=== PATIENT | female | born 1945 | race Caucasian/White ===

== ENCOUNTER 2020-05-28 15:37 | Inpatient (IN) | payer MEDICARE, SELFPAY ==
[2020-05-28] VITALS (15 sets, daily range): BP systolic 106–154; BP diastolic 66–82; PULSE 80–100; RESP 12–48; TEMP 38.5–38.8; O2SAT 68–86; BMI 24.7
[2020-05-28 15:36] LABS: Absolute Lymphocyte Count 0.82 X10^3/uL (0.83-4.51); Absolute Neutrophil Count 17.8 X10^3/uL (2.0-7.7); Basophil# 0.06 X10^3/uL; Basophil% 0.3 % (0-1); Eosinophil# 0.03 X10^3/uL; Eosinophils% 0.2 % (0-5); Hematocrit 42.1 % (37-47); Hemoglobin 14.4 g/dL (12.0-15.0); Lymphocyte # 0.82 X10^3/ul (4.0); Lymphocyte % 4.2 % (19-41); Mean Corp Hgb Conc 34.2 g/dL (32-36); Mean Corpuscular Hgb 30.1 pg (27.0-32.0); Mean Corpuscular Volume 87.9 fL (81-99); Mean Platelet Vol. 10.6 fl (6.2-12.0); Monocyte# 0.42 X10^3/uL; Monocyte% 2.2 % (0-10); NRBC Flagged by Analyzer 0 % (0-5); Neutrophil # 17.78 X10^3/uL (2.7-7.7); Neutrophil % 91.1 % (47-70); Platelet Count 235 K/mm3 (150-450); RBC Distribution Width CV 13.5 % (11.6-14.6); RBC Distribution Width SD 43.6 fl (35.1-43.9); Red Blood Count 4.79 M/mm3 (4.2-5.4); White Blood Count 19.5 K/mm3 (4.4-11.0)
--- NOTE | 2020-05-28 15:37 | RAD_ITS ---
STUDY: X-RAY CHEST REASON FOR EXAM: Female, 74 years old. DYSPNEA, COVID TECHNIQUE: AP COMPARISON: None. FINDINGS: EKG leads project over the chest. Interstitial, groundglass opacity and consolidative densities identified in the left more than right lung, peripheral dominant. No sizable effusion. Normal size heart. Normal mediastinum and isaura. Normal visualized pulmonary arteries. There is atherosclerotic calcification of the aortic arch with tortuosity. No acute bony process There is no demonstrated abnormality of the visualized soft tissue structures of the upper abdomen. RAD/Chest 1 View (Portable) IMPRESSION: 1. Multilobar pulmonary infiltrates with features suggesting COVID pneumonia. Electronically Signed: Rancho Capone MD ([facility]) at 16:14 EST , Service support ,
--- NOTE | 2020-05-28 15:43 | NURSING ---
received from [facility] pulse ox 50% on non-rebreather bi-pap applied 100% epap 11, core temp wells inserted obtained clear bryson urine, a-flutter on monitor
[2020-05-28 16:06] LABS: Base Excess -6 mmol/L (-2 to +2); Bicarbonate 18.6 mmol/L (22-26); Blood Gas Specimen Type ART; FI02 100; PEEP 14; PO2 43 mmHG (75-100); RR 12; SITE R Radial; SO2 82 % (95-99); Total Carbon Dioxide 20 mmol/L; Vt 400; pCO2 27.4 mmHg (35-45); pH 7.44 (7.35-7.45)
[2020-05-28 16:18] LABS: Absolute Lymphocyte Count 0.59 X10^3/uL (0.83-4.51); Absolute Neutrophil Count 23.1 X10^3/uL (2.0-7.7); Basophil# 0.07 X10^3/uL; Basophil% 0.3 % (0-1); Eosinophil# 0.03 X10^3/uL; Eosinophils% 0.1 % (0-5); Hematocrit 41.3 % (37-47); Lymphocyte # 0.59 X10^3/ul (4.0); Lymphocyte % 2.4 % (19-41); Mean Corp Hgb Conc 33.9 g/dL (32-36); Mean Corpuscular Hgb 30.1 pg (27.0-32.0); Mean Corpuscular Volume 88.8 fL (81-99); Mean Platelet Vol. 9.9 fl (6.2-12.0); Monocyte# 0.57 X10^3/uL; Monocyte% 2.3 % (0-10); NRBC Flagged by Analyzer 0 % (0-5); Neutrophil # 23.06 X10^3/uL (2.7-7.7); POSITIVE DIFFERENTIAL YES; Platelet Count 220 K/mm3 (150-450); RBC Distribution Width CV 13.5 % (11.6-14.6); Red Blood Count 4.65 M/mm3 (4.2-5.4); White Blood Count 24.8 K/mm3 (4.4-11.0)
[2020-05-28 16:23] LABS: Differential Indicated SCAN CRITERIA MET
[2020-05-28 16:37] LABS: ALB/GLOB Ratio 0.6 RATIO (0.9-2.4); AST(SGOT) 16 U/L (15-37); Alanine Aminotransfer ALT/SGPT 27 U/L (13-56); Albumin, Serum 2.5 g/dL (3.2-5.0); Alkaline Phosphatase 106 U/L (45-117); Anion Gap 10 (5-15); BUN 23 mg/dL (7-18); BUN/Creat Ratio 21.5 RATIO (10-20); Calcium,Total 8.4 mg/dL (8.5-10.1); Chloride 108 mmol/L (98-107); Creatinine, Serum 1.07 mg/dL (0.55-1.02); EST Glomerular Filtration Rate 53 mL/min (>60); Est Glom Filt Rate - Afr Amer 64 mL/min (>60); Estimated Creatinine Clearance 39.23 ml/min; Globulin 4.2 g/dL (2.2-4.2); Glucose 137 mg/dL (74-106); Potassium 3.5 mmol/L (3.5-5.1); Protein, Total 6.7 g/dL (6.4-8.2); Sodium Level 138 mmol/L (136-145)
[2020-05-28 16:50] LABS: Magnesium 2.4 mg/dL (1.6-2.6); Phosphorus 3.6 mg/dL (2.5-4.9)
[2020-05-28] MEDS: Furosemide 40 MG/4 ML Vial IV (17:40)
[2020-05-28] MEDS: 0.9% Saline Lock 10 ML Syringe IV (17:42)
--- NOTE | 2020-05-28 18:24 | HP.PCM_ITS ---
Problem List (1) Pneumonia due to COVID-19 virus Status: Acute (2) Acute hypoxemic respiratory failure Status: Acute (3) Atrial flutter with rapid ventricular response Status: Acute History of Present Illness Date of Admission: 05/28/20 Chief Complaint: Shortness of breath The patient is a 74 year old F transferred from [facility] where she had been on admission for the last 12 days for COVID-19 pneumonia and respiratory failure. Patient had been on high flow oxygen and had completed 10 days therapy with remdesivir and dexamethasone but has yet to improve. As of today patient, though being on 100% oxygen at 80 L was only saturating in the 60s to 70s. Here patient has been placed on noninvasive positive pressure ventilation with BiPAP/AVAPS at 100% FiO2 and is only saturating at 74%. Multiple discussions had with the patient at the referring hospital as well as during my encounter regarding goals of care and resuscitation preferences. Patient continues to insist that she would not want to be intubated or to be on mechanical ventilation. States that if things get really bad she may consider it. Hospital stay there was complicated by development of what was reported to be atrial fibrillation with rapid ventricular response requiring initiation of Cardizem drip and full anticoagulation with Eliquis. On my own review of EKG strips it appears patient was actually in atrial flutter with rapid ventricular response. [] Past Medical History Allergies No Known Allergies Allergy (Verified 05/28/20 17:28) Psychiatric History: No pertinent psych hx Smoking Status: Former smoker Tobacco Use: Cigarettes Review of Systems Constitutional: Reports: Anorexia, Malaise, Fatigue Eyes: Denies: Blurred vision HEENT: Denies: Difficulty Hearing Cardiovascular: Denies: Chest Pain, Claudication Respiratory: Reports: Cough, Shortness of Breath, Shortness of breath at rest, S hortness of breath upon exertion Gastrointestinal: Denies: Abdominal Pain, Vomiting Psychiatric: Denies: Anxiety Comment: All other systems reviewed and essentially negative. VTE Information - Inpt Only VTE Present on Admission: No VTE Pharm Prophylaxis ordered?: Yes - Physical Exam Vitals/I&O's: Vital Signs Temp Pulse Resp BP Pulse Ox 101.8 F H 91 37 H 138/72 H 78 05/28/20 17:01 05/28/20 17:42 05/28/20 17:42 05/28/20 17:01 05/28/20 17:42 Oxygen Delivery Method Bi-pap Weight: 65.3 kg Body Mass Index (BMI) 24.7 General: Alert, Oriented x3, Cooperative, - - Severely dyspneic, tachypneic, in respiratory distress, relatively calm though HEENT: Atraumatic Oral: Dry Mucosa Neck: Supple, No JVD Lungs: - - Harsh breath sounds bilaterally Cardiovascular: No Ectopic Activity, Tachycardic Abdomen: Soft Extremities: No clubbing, No cyanosis, No edema Skin: - - Some mottling noted in the lower extremities Musculoskeletal: No Tenderness to Palpation of Joints or Extremities, No Muscle Wasting Neurological: Cranial nerves II-XII grossly intact, Motor Exam 5/5 strength throughout Psych/Mental Status: Normal Affect, Appropriate Laboratory Results 05/28/20 15:15: WBC 19.5 H, RBC 4.79, Hgb 14.4, Hct 42.1, MCV 87.9, MCH 30.1, MCHC 34.2, RDW Std Deviation 43.6, RDW Coeff of Naty 13.5, Plt Count 235, MPV 10.6, Immature Gran % (Auto) 2.000 H, Neut % (Auto) 91.1 H, Lymph % (Auto) 4.2 L , [place] % (Auto) 2.2, Eos % (Auto) 0.2, Baso % (Auto) 0.3, Absolute Neuts (auto) 17.8 H, Absolute Lymphs (auto) 0.82 L, Nucleated RBC % 0 05/28/20 15:15: PT Cancelled, INR Cancelled 05/28/20 15:15: Sodium Cancelled, Potassium Cancelled, Chloride Cancelled, Carbon Dioxide Cancelled, Anion Gap Cancelled, BUN Cancelled, Creatinine Cancelled, Estim Creat Clear Calc Cancelled, Est GFR (MDRD) Af Amer Cancelled, Est GFR (MDRD) Non-Af Cancelled, BUN/Creatinine Ratio Cancelled, Glucose Cancelled, Calcium Cancelled, Phosphorus Cancelled, Magnesium Cancelled 05/28/20 15:15: Lactic Acid Cancelled 05/28/20 15:58: Specimen Type ART, Sample Site R Radial, pH 7.44, Bicarbonate Actual 18.6 L, Total CO2 20, Base Excess -6 L, O2 Saturation 82 L, O2 % 100, ABG pCO2 27.4 L, ABG pO2 43 L, Respiration Rate 12, Tidal Volume 400, POC PEEP 14 05/28/20 16:00: Sodium 138, Potassium 3.5, Chloride 108 H, Carbon Dioxide 20.0 L , Anion Gap 10, BUN 23 H, Creatinine 1.07 H, Estim Creat Clear Calc 39.23, Est GFR (MDRD) Af Amer 64, Est GFR (MDRD) Non-Af 53 L, BUN/Creatinine Ratio 21.5 H, Glucose 137 H, Calcium 8.4 L, Total Bilirubin 0.80, AST 16, ALT 27, Alkaline Phosphatase 106, Total Protein 6.7, Albumin 2.5 L, Globulin 4.2, Albumin/Globulin Ratio 0.6 L 05/28/20 16:00: WBC 24.8 H, RBC 4.65, Hgb 14.0, Hct 41.3, MCV 88.8, MCH 30.1, MCHC 33.9, RDW Std Deviation 44.0 H, RDW Coeff of Naty 13.5, Plt Count 220, MPV 9.9, Immature Gran % (Auto) 1.900 H, Neut % (Auto) 93.0 H, Lymph % (Auto) 2.4 L, [place] % (Auto) 2.3, Eos % (Auto) 0.1, Baso % (Auto) 0.3, Absolute Neuts (auto) 23.1 H, Absolute Lymphs (auto) 0.59 L, Nucleated RBC % 0 05/28/20 16:00: Phosphorus 3.6, Magnesium 2.4 05/28/20 16:04: Specimen Type Cancelled, Sample Site Cancelled, pH Cancelled, Bicarbonate Actual Cancelled, Total CO2 Cancelled, Base Excess Cancelled, O2 Saturation Cancelled, O2 % Cancelled, ABG pCO2 Cancelled, ABG pO2 Cancelled, Roni Test Cancelled, Respiration Rate Cancelled, O2 Delivery Device Cancelled, Liter Flow Cancelled, Minute Volume Cancelled, Vent Mode Cancelled, Inspiratory Time Cancelled, Expiratory Time Cancelled, Tidal Volume Cancelled, POC PEEP Cancelled, POC Pressure Suppt Cancelled, Pressure Control Cancelled, Pressure High Cancelled, Pressure Low Cancelled, Time High Cancelled, Time Low Cancelled, EPAP Cancelled, IPAP Cancelled, Blood Gas Comments Cancelled, Blood Gas Notified Whom Cancelled, Blood Gas Notified Time Cancelled Current Medications Acetaminophen (Acetaminophen 325 Mg Tablet) 650 mg PO Q6H PRN PRN PRN Reason: Pain Score 1-10/Temp > 100.7 F Enoxaparin Sodium (Enoxaparin 60 Mg/0.6 Ml Syringe) 60 mg SC Q12 [facility] Furosemide (Furosemide 40 Mg/4 Ml Vial) 40 mg IV BID@1000,1800 [facility] Last Admin: 05/28/20 17:40 Dose: 40 mg Documented by: Diltiazem HCl 125 mg/ Dextrose 125 mls @ 15 mls/hr IV .Q8H20M [facility]; Protocol Last Admin: 05/28/20 16:13 Dose: 15 mg/hr, 15 mls/hr Documented by: Morphine Sulfate (Morphine 2 Mg/Ml Syringe) 2 mg IV Q3H PRN PRN PRN Reason: Pain Score 6-10 Sodium Chloride (0.9% Saline Lock 10 Ml Syringe) 10 - 40 ml IV UD PRN PRN Reason: SALINE FLUSH Last Admin: 05/28/20 17:42 Dose: 10 ml Documented by: Assessment/Plan All Active Problems Pneumonia due to COVID-19 virus (Acute) Acute hypoxemic respiratory failure (Acute) Atrial flutter with rapid ventricular response (Acute) 1. COVID-19 pneumonia with acute hypoxic respiratory failure. Patient essentially maxed out on noninvasive positive pressure ventilation settings. Remains reluctant to consider invasive ventilation at this time. May need to continue to have ongoing discussions with this patient about this. Discussed with pulmonology/critical care. Recommending starting patient on IV Lasix and full anticoagulation for presumed possible pulmonary embolism. Continue IV steroids with dexamethasone. 2. Atrial flutter with rapid ventricular response. Continue Cardizem drip at current rate. Transition to oral Cardizem when able to safely take by mouth. Inpatient E&M: 23042 Init Hosp L3
[2020-05-28] MEDS: Enoxaparin 60 MG/0.6 ML Syringe SC (20:29)
[2020-05-28 22:10] LABS: International Normalized Ratio 2.1; Prothrombin Time (Protime)PT. 22.7 SECONDS (11.7-14.9)
[2020-05-28 22:41] LABS: Lactic Acid 2.2 mmol/L (0.4-1.9)
[2020-05-29] VITALS (37 sets, daily range): BP systolic 111–161; BP diastolic 56–142; PULSE 81–104; RESP 12–37; TEMP 37.4–38.3; O2SAT 82–93
[2020-05-29 01:59] LABS: Reflex Lactate? Y
[2020-05-29 04:06] LABS: Absolute Lymphocyte Count 0.87 X10^3/uL (0.83-4.51); Absolute Neutrophil Count 14.7 X10^3/uL (2.0-7.7); Basophil# 0.04 X10^3/uL; Basophil% 0.2 % (0-1); Eosinophil# 0.03 X10^3/uL; Eosinophils% 0.2 % (0-5); Hematocrit 38.9 % (37-47); Hemoglobin 13.3 g/dL (12.0-15.0); Lymphocyte # 0.87 X10^3/ul (4.0); Lymphocyte % 5.3 % (19-41); Mean Corp Hgb Conc 34.2 g/dL (32-36); Mean Corpuscular Hgb 30.2 pg (27.0-32.0); Mean Corpuscular Volume 88.2 fL (81-99); Mean Platelet Vol. 10.4 fl (6.2-12.0); Monocyte# 0.43 X10^3/uL; Monocyte% 2.6 % (0-10); NRBC Flagged by Analyzer 0 % (0-5); Neutrophil # 14.65 X10^3/uL (2.7-7.7); Neutrophil % 89.9 % (47-70); Platelet Count 206 K/mm3 (150-450); RBC Distribution Width CV 13.5 % (11.6-14.6); Red Blood Count 4.41 M/mm3 (4.2-5.4); White Blood Count 16.3 K/mm3 (4.4-11.0)
[2020-05-29 04:27] LABS: Anion Gap 10 (5-15); BUN 26 mg/dL (7-18); BUN/Creat Ratio 21.7 RATIO (10-20); Calcium,Total 8.4 mg/dL (8.5-10.1); Chloride 110 mmol/L (98-107); EST Glomerular Filtration Rate 47 mL/min (>60); Est Glom Filt Rate - Afr Amer 56 mL/min (>60); Estimated Creatinine Clearance 34.98 ml/min; Glucose 153 mg/dL (74-106); Potassium 3.5 mmol/L (3.5-5.1); Sodium Level 142 mmol/L (136-145)
[2020-05-29 04:37] LABS: Procalcitonin 0.77 ng/mL (0.00-0.09)
--- NOTE | 2020-05-29 06:37 | CON.PCM_ITS ---
Reason for Consult Date of Consultation: 05/29/20 Reason for Consultation: Acute hypoxemic respiratory failure History of Present Illness: The patient is a 74-year-old female, with a history as outlined below, who presented to the hospital on May 28 as a transfer of care from [facility] with respiratory failure secondary to COVID-19 pneumonia. The patient was initially admitted to the outside hospital on the and has received treatment with convalescent plasma, remdesivir and Decadron. The patient was also placed on systemic anticoagulation initially with Lovenox and later with Eliquis. Although the aforementioned interventions were undertaken, the patient failed to improve from a respiratory perspective prior to her transfer was maintaining saturations in the 70s on high flow oxygen. The patient was subsequently transferred to our medical intensive care unit, where she was placed on AVAPS therapy. The patient is currently being maintained on noninvasive positive pressure ventilatory support with a tidal volume target of 450 mL and an FiO2 of 100%. The patient was noted to be in atrial flutter/fibrillation upon arrival and was placed on a Cardizem infusion. She subsequently converted back to normal sinus rhythm last night at 0200 hrs. She is currently being treated with IV Lasix 40 mg twice daily. Despite all of the above, the patient remains in respiratory distress on noninvasive positive pressure ventilatory support. In speaking with the patient at length this morning, she did become visibly distressed with tachypnea and conversational dyspnea. She appears to be wavering with regard to her CODE STATUS and her desire to proceed with being intubated. Past Medical History Allergies No Known Allergies Allergy (Verified 05/28/20 17:28) Home Medications: Ambulatory Orders Medication Instructions Recorded Levothyroxine Sodium [Synthroid] 50 mcg PO DAILY 05/29/20 Psychiatric History: No pertinent psych hx Smoking Status: Former smoker Tobacco Use: Cigarettes Review of Systems Constitutional: Reports: Weakness, Fatigue. Denies: Chills, Fever Eyes: Denies: Blurred vision, Double vision HEENT: Denies: Head Aches, Sinus Congestion, Sinus Drainage Cardiovascular: Denies: Chest Pain, Palpitations Respiratory: Reports: Shortness of Breath Gastrointestinal: Denies: Abdominal Pain, Nausea, Vomiting Genitourinary: Denies: Dysuria Musculoskeletal: Denies: Joint Pain, Joint Tenderness Skin: Denies: Rash, Wounds Neurological: Denies: Numbness, Tingling, Focal weakness Psychiatric: Denies: Anxiety, Depression, Homicidal Ideations, Suicidal Ideations Hematologic/ Lymphatic: Denies: Easy Bruising, Easy Bleeding Patient Problems: Active and Suspected Problems Pneumonia due to COVID-19 virus (Acute) Acute hypoxemic respiratory failure (Acute) Atrial flutter with rapid ventricular response (Acute) Objective: The patient's most recent lab work, culture data and imaging studies have all been personally reviewed. - Physical Exam Vitals/I&O's: Vital Signs Temp Pulse Resp BP Pulse Ox 100.9 F H 85 28 H 130/69 H 89 05/29/20 00:00 05/29/20 06:30 05/29/20 06:15 05/29/20 06:00 05/29/20 06:15 Oxygen Delivery Method Bi-pap Weight: 148 lb 12.992 oz Body Mass Index (BMI) 24.7 Intake and Output for Last 24 Hours 05/27/20 05/28/20 05/29/20 23:59 23:59 23:59 Intake Total 101.75 / 116.75 110.00 / 110.00 Output Total 450 / 450 90 / 90 Balance -348.25 / -333.25 20.0 / 20.00 General: Alert, Cooperative, - - Appears distressed with AVAPS in place. HEENT: Atraumatic, Normocephalic Oral: Dry Mucosa Neck: Supple, No Nodes, Trachea Midline Lungs: Diminished, Short of Breath, Tachypneic, - - + Conversational dyspnea Cardiovascular: Regular rate, Regular Rhythm Abdomen: Bowel Sounds Present, Soft, Non Tender Extremities: No clubbing, No cyanosis, No edema Skin: No breakdown Musculoskeletal: No Tenderness to Palpation of Joints or Extremities Lymphatic: No Cervical, Supraclavicular, or Inguinal Adenopathy Neurological: Cranial nerves II-XII grossly intact, Neuro grossly intact Psych/Mental Status: Normal Affect Labs (Last 48 Hours) 05/28/20 05/28/20 05/28/20 15:15 15:15 15:15 WBC 19.5 H RBC 4.79 Hgb 14.4 Hct 42.1 MCV 87.9 MCH 30.1 MCHC 34.2 RDW Std Deviation 43.6 RDW Coeff of Naty 13.5 Plt Count 235 MPV 10.6 Immature Gran % (Auto) 2.000 H Neut % (Auto) 91.1 H Lymph % (Auto) 4.2 L [place] % (Auto) 2.2 Eos % (Auto) 0.2 Baso % (Auto) 0.3 Absolute Neuts (auto) 17.8 H Absolute Lymphs (auto) 0.82 L Nucleated RBC % 0 PT Cancelled INR Cancelled Specimen Type Sample Site pH Bicarbonate Actual Total CO2 Base Excess O2 Saturation O2 % ABG pCO2 ABG pO2 Roni Test Respiration Rate O2 Delivery Device Liter Flow Minute Volume Vent Mode Inspiratory Time Expiratory Time Tidal Volume POC PEEP POC Pressure Suppt Pressure Control Pressure High Pressure Low Time High Time Low EPAP IPAP Blood Gas Comments Blood Gas Notified Whom Blood Gas Notified Time Sodium Cancelled Potassium Cancelled Chloride Cancelled Carbon Dioxide Cancelled Anion Gap Cancelled BUN Cancelled Creatinine Cancelled Estim Creat Clear Calc Cancelled Est GFR (MDRD) Af Amer Cancelled Est GFR (MDRD) Non-Af Cancelled BUN/Creatinine Ratio Cancelled Glucose Cancelled Lactic Acid Calcium Cancelled Phosphorus Cancelled Magnesium Cancelled Total Bilirubin AST ALT Alkaline Phosphatase Total Protein Albumin Globulin Albumin/Globulin Ratio Procalcitonin 05/28/20 05/28/20 05/28/20 15:15 15:58 16:00 WBC RBC Hgb Hct MCV MCH MCHC RDW Std Deviation RDW Coeff of Naty Plt Count MPV Immature Gran % (Auto) Neut % (Auto) Lymph % (Auto) [place] % (Auto) Eos % (Auto) Baso % (Auto) Absolute Neuts (auto) Absolute Lymphs (auto) Nucleated RBC % PT INR Specimen Type ART Sample Site R Radial pH 7.44 Bicarbonate Actual 18.6 L Total CO2 20 Base Excess -6 L O2 Saturation 82 L O2 % 100 ABG pCO2 27.4 L ABG pO2 43 L Roni Test Respiration Rate 12 O2 Delivery Device Liter Flow Minute Volume Vent Mode Inspiratory Time Expiratory Time Tidal Volume 400 POC PEEP 14 POC Pressure Suppt Pressure Control Pressure High Pressure Low Time High Time Low EPAP IPAP Blood Gas Comments Blood Gas Notified Whom Blood Gas Notified Time Sodium 138 Potassium 3.5 Chloride 108 H Carbon Dioxide 20.0 L Anion Gap 10 BUN 23 H Creatinine 1.07 H Estim Creat Clear Calc 39.23 Est GFR (MDRD) Af Amer 64 Est GFR (MDRD) Non-Af 53 L BUN/Creatinine Ratio 21.5 H Glucose 137 H Lactic Acid Cancelled Calcium 8.4 L Phosphorus Magnesium Total Bilirubin 0.80 AST 16 ALT 27 Alkaline Phosphatase 106 Total Protein 6.7 Albumin 2.5 L Globulin 4.2 Albumin/Globulin Ratio 0.6 L Procalcitonin 05/28/20 05/28/20 05/28/20 16:00 16:00 16:04 WBC 24.8 H RBC 4.65 Hgb 14.0 Hct 41.3 MCV 88.8 MCH 30.1 MCHC 33.9 RDW Std Deviation 44.0 H RDW Coeff of Naty 13.5 Plt Count 220 MPV 9.9 Immature Gran % (Auto) 1.900 H Neut % (Auto) 93.0 H Lymph % (Auto) 2.4 L [place] % (Auto) 2.3 Eos % (Auto) 0.1 Baso % (Auto) 0.3 Absolute Neuts (auto) 23.1 H Absolute Lymphs (auto) 0.59 L Nucleated RBC % 0 PT INR Specimen Type Cancelled Sample Site Cancelled pH Cancelled Bicarbonate Actual Cancelled Total CO2 Cancelled Base Excess Cancelled O2 Saturation Cancelled O2 % Cancelled ABG pCO2 Cancelled ABG pO2 Cancelled Roni Test Cancelled Respiration Rate Cancelled O2 Delivery Device Cancelled Liter Flow Cancelled Minute Volume Cancelled Vent Mode Cancelled Inspiratory Time Cancelled Expiratory Time Cancelled Tidal Volume Cancelled POC PEEP Cancelled POC Pressure Suppt Cancelled Pressure Control Cancelled Pressure High Cancelled Pressure Low Cancelled Time High Cancelled Time Low Cancelled EPAP Cancelled IPAP Cancelled Blood Gas Comments Cancelled Blood Gas Notified Whom Cancelled Blood Gas Notified Time Cancelled Sodium Potassium Chloride Carbon Dioxide Anion Gap BUN Creatinine Estim Creat Clear Calc Est GFR (MDRD) Af Amer Est GFR (MDRD) Non-Af BUN/Creatinine Ratio Glucose Lactic Acid Calcium Phosphorus 3.6 Magnesium 2.4 Total Bilirubin AST ALT Alkaline Phosphatase Total Protein Albumin Globulin Albumin/Globulin Ratio Procalcitonin 05/28/20 05/28/20 05/28/20 20:05 20:05 21:52 WBC RBC Hgb Hct MCV MCH MCHC RDW Std Deviation RDW Coeff of Naty Plt Count MPV Immature Gran % (Auto) Neut % (Auto) Lymph % (Auto) [place] % (Auto) Eos % (Auto) Baso % (Auto) Absolute Neuts (auto) Absolute Lymphs (auto) Nucleated RBC % PT Cancelled 22.7 H INR Cancelled 2.1 Specimen Type Sample Site pH Bicarbonate Actual Total CO2 Base Excess O2 Saturation O2 % ABG pCO2 ABG pO2 Roni Test Respiration Rate O2 Delivery Device Liter Flow Minute Volume Vent Mode Inspiratory Time Expiratory Time Tidal Volume POC PEEP POC Pressure Suppt Pressure Control Pressure High Pressure Low Time High Time Low EPAP IPAP Blood Gas Comments Blood Gas Notified Whom Blood Gas Notified Time Sodium Potassium Chloride Carbon Dioxide Anion Gap BUN Creatinine Estim Creat Clear Calc Est GFR (MDRD) Af Amer Est GFR (MDRD) Non-Af BUN/Creatinine Ratio Glucose Lactic Acid Cancelled Calcium Phosphorus Magnesium Total Bilirubin AST ALT Alkaline Phosphatase Total Protein Albumin Globulin Albumin/Globulin Ratio Procalcitonin 05/28/20 05/29/20 05/29/20 21:52 03:55 03:55 WBC 16.3 H RBC 4.41 Hgb 13.3 Hct 38.9 MCV 88.2 MCH 30.2 MCHC 34.2 RDW Std Deviation 44.0 H RDW Coeff of Naty 13.5 Plt Count 206 MPV 10.4 Immature Gran % (Auto) 1.800 H Neut % (Auto) 89.9 H Lymph % (Auto) 5.3 L [place] % (Auto) 2.6 Eos % (Auto) 0.2 Baso % (Auto) 0.2 Absolute Neuts (auto) 14.7 H Absolute Lymphs (auto) 0.87 Nucleated RBC % 0 PT INR Specimen Type Sample Site pH Bicarbonate Actual Total CO2 Base Excess O2 Saturation O2 % ABG pCO2 ABG pO2 Roni Test Respiration Rate O2 Delivery Device Liter Flow Minute Volume Vent Mode Inspiratory Time Expiratory Time Tidal Volume POC PEEP POC Pressure Suppt Pressure Control Pressure High Pressure Low Time High Time Low EPAP IPAP Blood Gas Comments Blood Gas Notified Whom Blood Gas Notified Time Sodium 142 Potassium 3.5 Chloride 110 H Carbon Dioxide 22.0 Anion Gap 10 BUN 26 H Creatinine 1.20 H Estim Creat Clear Calc 34.98 Est GFR (MDRD) Af Amer 56 L Est GFR (MDRD) Non-Af 47 L BUN/Creatinine Ratio 21.7 H Glucose 153 H Lactic Acid 2.2 H* Calcium 8.4 L Phosphorus Magnesium Total Bilirubin AST ALT Alkaline Phosphatase Total Protein Albumin Globulin Albumin/Globulin Ratio Procalcitonin 05/29/20 03:55 WBC RBC Hgb Hct MCV MCH MCHC RDW Std Deviation RDW Coeff of Naty Plt Count MPV Immature Gran % (Auto) Neut % (Auto) Lymph % (Auto) [place] % (Auto) Eos % (Auto) Baso % (Auto) Absolute Neuts (auto) Absolute Lymphs (auto) Nucleated RBC % PT INR Specimen Type Sample Site pH Bicarbonate Actual Total CO2 Base Excess O2 Saturation O2 % ABG pCO2 ABG pO2 Roni Test Respiration Rate O2 Delivery Device Liter Flow Minute Volume Vent Mode Inspiratory Time Expiratory Time Tidal Volume POC PEEP POC Pressure Suppt Pressure Control Pressure High Pressure Low Time High Time Low EPAP IPAP Blood Gas Comments Blood Gas Notified Whom Blood Gas Notified Time Sodium Potassium Chloride Carbon Dioxide Anion Gap BUN Creatinine Estim Creat Clear Calc Est GFR (MDRD) Af Amer Est GFR (MDRD) Non-Af BUN/Creatinine Ratio Glucose Lactic Acid Calcium Phosphorus Magnesium Total Bilirubin AST ALT Alkaline Phosphatase Total Protein Albumin Globulin Albumin/Globulin Ratio Procalcitonin 0.77 H Clinical Impression(s) from Imaging Studies Chest X-Ray 05/28/20 15:37 IMPRESSION: 1. Multilobar pulmonary infiltrates with features suggesting COVID pneumonia. Electronically Signed: Rancho Capone MD ([facility]) at 16:14 EST , Service support , Current Medications Acetaminophen (Acetaminophen 325 Mg Tablet) 650 mg PO Q6H PRN PRN PRN Reason: Pain Score 1-10/Temp > 100.7 F Enoxaparin Sodium (Enoxaparin 60 Mg/0.6 Ml Syringe) 60 mg SC Q12 [facility] Last Admin: 05/28/20 20:29 Dose: 60 mg Documented by: Furosemide (Furosemide 40 Mg/4 Ml Vial) 40 mg IV BID@1000,1800 [facility] Last Admin: 05/28/20 17:40 Dose: 40 mg Documented by: Diltiazem HCl 125 mg/ Dextrose 125 mls @ 15 mls/hr IV .Q8H20M [facility]; Protocol Last Titration: 05/29/20 06:30 Dose: 10 mg/hr, 10 mls/hr Documented by: Potassium Chloride/Dextrose/Sod Cl () 1,000 mls @ 50 mls/hr IV .Q20H [facility] Last Admin: 05/28/20 20:29 Dose: 50 mls/hr Documented by: Morphine Sulfate (Morphine 2 Mg/Ml Syringe) 2 mg IV Q3H PRN PRN PRN Reason: Pain Score 6-10 Sodium Chloride (0.9% Saline Lock 10 Ml Syringe) 10 - 40 ml IV UD PRN PRN Reason: SALINE FLUSH Last Admin: 05/28/20 17:42 Dose: 10 ml Documented by: Assessment/Plan Active and Suspected Problems Pneumonia due to COVID-19 virus (Acute) Acute hypoxemic respiratory failure (Acute) Atrial flutter with rapid ventricular response (Acute) RECOMMENDATIONS: 1. Continue patient on AVAPS as tolerated, with a goal to maintain saturations at or above 90%. 2. Continue therapeutic anticoagulation with Lovenox. 3. Continue IV diuretic therapy as tolerated by hemodynamics and renal function. 4. Patient to remain n.p.o., given tenuous respiratory status. 5. Okay to discontinue Cardizem. 6. Check MRSA screen and start empiric antimicrobials. 7. Further goals of care discussion with the patient. IMPRESSIONS: 1. Acute hypoxemic respiratory failure secondary to COVID-19 pneumonia The patient was transferred from [facility] due to progressive respiratory failure in the setting of COVID-19 pneumonia. To date, the patient has received convalescent plasma and has completed treatment courses of both remdesivir and Decadron. Despite this, the patient's oxygenation status has continued to decline. She remains systemically anticoagulated on Lovenox and is currently receiving IV diuretic therapy, which will be continued as tolerated by hemodynamics and renal function. Given the patient's findings noted on chest imaging, coupled with her fevers noted at presentation, will obtain cultures and start her empirically on antimicrobials as well. I did speak at length with the patient this morning who is a wavering with regard to her current CODE STATUS and the possibility that she may require intubation. 2. Paroxysmal atrial fibrillation/flutter The patient did convert back to normal sinus rhythm overnight. Accordingly, Cardizem infusion will be discontinued. 3. Advanced age/hypothyroidism Complicates care, management, recovery and prognosis. Continue home medications. TIME: 42 minutes of critical care time, independent of procedures, was spent addressing the patient's acute hypoxemic respiratory failure, COVID-19 pneumonia, paroxysmal atrial fibrillation/flutter, review of all data and collaboration with the care team. [phone]) [phone]: [id number] Critical care first hour
--- NOTE | 2020-05-29 06:56 | PCS.PANDOC ---
PANDEMIC DOCUMENTATION INITIATED: Date: 05/28/20 Time: 1435
[2020-05-29 08:48] LABS: BNP,B-Type NATRIURETIC PEPTIDE 494.2 pg/mL (0-100)
[2020-05-29] MEDS: Furosemide 40 MG/4 ML Vial IV ×2 (10:42→17:32)
[2020-05-29] MEDS: Enoxaparin 60 MG/0.6 ML Syringe SC ×2 (10:42→22:10)
[2020-05-29] MEDS: dexAMETHasone 10 MG/ML Vial 6 MG IV (10:57)
[2020-05-29] MEDS: Piperacil/Tazobactam 3.375 GM Q12 PREMIX IV (10:59)
--- NOTE | 2020-05-29 11:14 | CASEMGMT ---
As per nursing, pt does not have any family, just a friend. Pt has said to RN that physician can speak w/friend. SW spoke w/RN and she was able to bring in POA form to pt, pt does want to have friend Alycia Ramos be her POA. RN let pt know SW would call her friend to let her know. SW called friend Alycia to let her know pt put her down as her POA in the event she cannot make decisions. Pt's friend is agreeable to be pt's POA if needed. SW will place a copy on the chart and the original will be brought in to pt. SW will continue to follow. YUE Zafar
--- NOTE | 2020-05-29 12:31 | CASEMGMT ---
RN CM Note: Patient is unable to participate in assessment at this time. Pt is on 100% Bipap. Uzair MALHOTRAN RN ACM
[2020-05-29 12:48] LABS: M R Staph aureus DNA By PCR Negative (Negative); Probe Check PASS; Specimen Processing Control PASS
--- NOTE | 2020-05-29 16:55 | PN_ITS ---
Patient Problems: Active and Suspected Problems Pneumonia due to COVID-19 virus (Acute) Acute hypoxemic respiratory failure (Acute) Atrial flutter with rapid ventricular response (Acute) Subjective: Patient was seen and examined today in ICU, she is currently on BiPAP on 100% oxygen. I had a discussion with her concerning use of mechanical ventilation, she does not want to be placed on a ventilator even if she needs it. Patient is alert and appropriate and knows the ramifications of this decision. - Physical Exam Vitals/I&O's: Vital Signs Temp Pulse Resp BP Pulse Ox 100.3 F H 92 28 H 127/73 H 90 05/29/20 16:00 05/29/20 16:00 05/29/20 16:00 05/29/20 16:00 05/29/20 16:00 Oxygen Delivery Method Bi-pap Weight: 67.5 kg Body Mass Index (BMI) 24.7 Intake and Output for Last 24 Hours 05/27/20 05/28/20 05/29/20 23:59 23:59 23:59 Intake Total 101.75 / 116.75 846.33 / 846.33 Output Total 450 / 450 690 / 690 Balance -348.25 / -333.25 156.33 / 156.33 General: Alert, Oriented x3, Cooperative, Well developed, Well nourished HEENT: Atraumatic, PERRLA, EOMI, Normocephalic Oral: Moist Mucosa Neck: Supple, No JVD, Trachea Midline, Thyroid Normal Size and Texture Lungs: Clear to auscultation, Normal air movement, No rhonchi, No wheeze, No rales Cardiovascular: Regular rate, Regular Rhythm, Normal S1, Normal S2, No murmurs Abdomen: Bowel Sounds Present, Soft, Non Tender, Non-Distended Extremities: No clubbing, No cyanosis, No edema, Capillary Refill Less than 3 Seconds Skin: No rashes, No breakdown Musculoskeletal: No Tenderness to Palpation of Joints or Extremities Neurological: Cranial nerves II-XII grossly intact, Neuro grossly intact, Sensory exam intact to light touch and pain Psych/Mental Status: Normal Affect, Appropriate, Alert and oriented to time, pl roseann, person, mood and affect Laboratory Results 05/28/20 20:05: PT Cancelled, INR Cancelled 05/28/20 20:05: Lactic Acid Cancelled 05/28/20 21:52: PT 22.7 H, INR 2.1 05/28/20 21:52: Lactic Acid 2.2 H* 05/29/20 03:55: WBC 16.3 H, RBC 4.41, Hgb 13.3, Hct 38.9, MCV 88.2, MCH 30.2, MCHC 34.2, RDW Std Deviation 44.0 H, RDW Coeff of Naty 13.5, Plt Count 206, MPV 10.4, Immature Gran % (Auto) 1.800 H, Neut % (Auto) 89.9 H, Lymph % (Auto) 5.3 L , [place] % (Auto) 2.6, Eos % (Auto) 0.2, Baso % (Auto) 0.2, Absolute Neuts (auto) 14.7 H, Absolute Lymphs (auto) 0.87, Nucleated RBC % 0 05/29/20 03:55: Sodium 142, Potassium 3.5, Chloride 110 H, Carbon Dioxide 22.0, Anion Gap 10, BUN 26 H, Creatinine 1.20 H, Estim Creat Clear Calc 34.98, Est GFR (MDRD) Af Amer 56 L, Est GFR (MDRD) Non-Af 47 L, BUN/Creatinine Ratio 21.7 H, Glucose 153 H, Calcium 8.4 L 05/29/20 03:55: Procalcitonin 0.77 H 05/29/20 03:55: B-Natriuretic Peptide 494.2 H 05/29/20 08:45: MRSA (PCR) Negative Current Medications Acetaminophen (Acetaminophen 325 Mg Tablet) 650 mg PO Q6H PRN PRN PRN Reason: Pain Score 1-10/Temp > 100.7 F Dexamethasone Sodium Phosphate (Dexamethasone 10 Mg/Ml Vial) 6 mg IV DAILY [facility] Stop: 06/07/20 10:01 Last Admin: 05/29/20 10:57 Dose: 6 mg Documented by: Enoxaparin Sodium (Enoxaparin 60 Mg/0.6 Ml Syringe) 60 mg SC Q12 [facility] Last Admin: 05/29/20 10:42 Dose: 60 mg Documented by: Furosemide (Furosemide 40 Mg/4 Ml Vial) 40 mg IV BID@1000,1800 [facility] Last Admin: 05/29/20 10:42 Dose: 40 mg Documented by: Piperacillin Sod/Tazobactam (Sod 3.375 gm/ Sodium Chloride) 50 mls @ 12.5 mls/hr IV Q8 [facility] Last Admin: 05/29/20 15:17 Dose: 12.5 mls/hr Documented by: Sodium Chloride (0.9% Saline Lock 10 Ml Syringe) 10 - 40 ml IV UD PRN PRN Reason: SALINE FLUSH Last Admin: 05/28/20 17:42 Dose: 10 ml Documented by: Medical Necessity - Tobacco Use Smoking Status: Former smoker Tobacco Use: Cigarettes Assessment/Plan All Active Problems Pneumonia due to COVID-19 virus (Acute) Acute hypoxemic respiratory failure (Acute) Atrial flutter with rapid ventricular response (Acute) #1 acute hypoxic respiratory failure secondary to COVID-19 pneumonia-continue present treatment including BiPAP, dexamethasone #2 bilateral COVID-19 pneumonia-continue present treatment #3 atrial flutter-converted to sinus rhythm at this time #4 hypothyroidism Patient is a DNR CC arrest without intubation, prognosis remains guarded at this time Inpatient E&M: 55508 Subs Hosp L2
--- NOTE | 2020-05-29 18:25 | NURSING ---
This RN had several discussions with the patient about code status, and the patient confirmed with this RN that if the bipap does not work, she wants to be made comfort care and go to hospice. She does not want to be intubated. Dr. Montero notified of patients choice.
--- NOTE | 2020-05-29 22:21 | NURSING ---
Pt provided mouth care, able to hold p.ox at 82% for about 20 seconds w/out AVAPs support, then drops sharply to 61%;pt recovered to 79% p.ox. quickly and slowly came back up to the 83% we started at. Pt stated many thanks for that! Emotional support provided. Call light within reach.
[2020-05-30] VITALS (21 sets, daily range): BP systolic 119–157; BP diastolic 60–89; PULSE 91–110; RESP 12–32; TEMP 36.6–37.6; O2SAT 74–97
[2020-05-30 06:01] LABS: Absolute Lymphocyte Count 0.95 X10^3/uL (0.83-4.51); Basophil# 0.04 X10^3/uL; Basophil% 0.3 % (0-1); Hematocrit 41.5 % (37-47); Lymphocyte # 0.95 X10^3/ul (4.0); Lymphocyte % 7.5 % (19-41); Mean Corp Hgb Conc 33.7 g/dL (32-36); Mean Corpuscular Hgb 29.7 pg (27.0-32.0); Mean Corpuscular Volume 88.1 fL (81-99); Mean Platelet Vol. 10.8 fl (6.2-12.0); Monocyte# 0.41 X10^3/uL; Monocyte% 3.2 % (0-10); NRBC Flagged by Analyzer 0 % (0-5); Neutrophil # 11.03 X10^3/uL (2.7-7.7); Neutrophil % 87.2 % (47-70); Platelet Count 239 K/mm3 (150-450); RBC Distribution Width CV 13.5 % (11.6-14.6); RBC Distribution Width SD 43.5 fl (35.1-43.9); Red Blood Count 4.71 M/mm3 (4.2-5.4); White Blood Count 12.7 K/mm3 (4.4-11.0)
--- NOTE | 2020-05-30 06:04 | PN_ITS ---
Subjective: The patient was seen and examined at the bedside this morning. Events from the last 24 hours have been reviewed. The patient is currently afebrile, hemodynamically stable and maintaining appropriate oxygen saturations on AVAPS with an FiO2 requirement of 100%. Despite her tenuous respiratory status, the patient decided yesterday after discussion with her friends that she would not want to be intubated. Therefore, she remains DNR CCA. I did again speak with the patient this morning at the bedside regarding her options for moving forward with care. She, at this time, wishes to pursue a referral to hospice care services. Objective: The patient's most recent lab work, culture data and imaging studies have all b een personally reviewed. Blood and urine cultures are pending. General: Alert, Cooperative, - - BiPAP mask remains in place. HEENT: Atraumatic, Normocephalic Oral: No Gingival or Mucosal Lesions/ Ulcerations Neck: Supple, No Nodes, Trachea Midline Lungs: No rhonchi, No wheeze, No rales, Diminished, Tachypneic Cardiovascular: Normal S1, Normal S2, No murmurs, Tachycardic Abdomen: Bowel Sounds Present, Soft, Non Tender Extremities: No clubbing, No cyanosis, No edema Skin: No breakdown Musculoskeletal: No Tenderness to Palpation of Joints or Extremities Lymphatic: No Cervical, Supraclavicular, or Inguinal Adenopathy Neurological: Cranial nerves II-XII grossly intact, Neuro grossly intact Psych/Mental Status: Normal Affect, Appropriate Vital Signs Temp Pulse Resp BP Pulse Ox 99.4 F H 92 28 H 139/82 H 85 05/30/20 06:00 05/30/20 06:00 05/30/20 06:00 05/30/20 06:00 05/30/20 06:00 Oxygen Delivery Method Bi-pap Weight: 132 lb 11.492 oz Body Mass Index (BMI) 24.7 Intake and Output for Last 24 Hours 05/28/20 05/29/20 05/30/20 23:59 23:59 23:59 Intake Total 101.75 / 116.75 896.33 / 896.33 50 / 50 Output Total 450 / 450 1285 / 1285 195 / 195 Balance -348.25 / -333.25 -388.67 / -388.67 -145 / -145 Labs (Last 48 Hours) 05/28/20 05/28/20 05/28/20 15:15 15:15 15:15 WBC 19.5 H RBC 4.79 Hgb 14.4 Hct 42.1 MCV 87.9 MCH 30.1 MCHC 34.2 RDW Std Deviation 43.6 RDW Coeff of Naty 13.5 Plt Count 235 MPV 10.6 Immature Gran % (Auto) 2.000 H Neut % (Auto) 91.1 H Lymph % (Auto) 4.2 L [place] % (Auto) 2.2 Eos % (Auto) 0.2 Baso % (Auto) 0.3 Absolute Neuts (auto) 17.8 H Absolute Lymphs (auto) 0.82 L Nucleated RBC % 0 PT Cancelled INR Cancelled Specimen Type Sample Site pH Bicarbonate Actual Total CO2 Base Excess O2 Saturation O2 % ABG pCO2 ABG pO2 Roni Test Respiration Rate O2 Delivery Device Liter Flow Minute Volume Vent Mode Inspiratory Time Expiratory Time Tidal Volume POC PEEP POC Pressure Suppt Pressure Control Pressure High Pressure Low Time High Time Low EPAP IPAP Blood Gas Comments Blood Gas Notified Whom Blood Gas Notified Time Sodium Cancelled Potassium Cancelled Chloride Cancelled Carbon Dioxide Cancelled Anion Gap Cancelled BUN Cancelled Creatinine Cancelled Estim Creat Clear Calc Cancelled Est GFR (MDRD) Af Amer Cancelled Est GFR (MDRD) Non-Af Cancelled BUN/Creatinine Ratio Cancelled Glucose Cancelled Lactic Acid Calcium Cancelled Phosphorus Cancelled Magnesium Cancelled Total Bilirubin AST ALT Alkaline Phosphatase B-Natriuretic Peptide Total Protein Albumin Globulin Albumin/Globulin Ratio Procalcitonin MRSA (PCR) 05/28/20 05/28/20 05/28/20 15:15 15:58 16:00 WBC RBC Hgb Hct MCV MCH MCHC RDW Std Deviation RDW Coeff of Naty Plt Count MPV Immature Gran % (Auto) Neut % (Auto) Lymph % (Auto) [place] % (Auto) Eos % (Auto) Baso % (Auto) Absolute Neuts (auto) Absolute Lymphs (auto) Nucleated RBC % PT INR Specimen Type ART Sample Site R Radial pH 7.44 Bicarbonate Actual 18.6 L Total CO2 20 Base Excess -6 L O2 Saturation 82 L O2 % 100 ABG pCO2 27.4 L ABG pO2 43 L Roni Test Respiration Rate 12 O2 Delivery Device Liter Flow Minute Volume Vent Mode Inspiratory Time Expiratory Time Tidal Volume 400 POC PEEP 14 POC Pressure Suppt Pressure Control Pressure High Pressure Low Time High Time Low EPAP IPAP Blood Gas Comments Blood Gas Notified Whom Blood Gas Notified Time Sodium 138 Potassium 3.5 Chloride 108 H Carbon Dioxide 20.0 L Anion Gap 10 BUN 23 H Creatinine 1.07 H Estim Creat Clear Calc 39.23 Est GFR (MDRD) Af Amer 64 Est GFR (MDRD) Non-Af 53 L BUN/Creatinine Ratio 21.5 H Glucose 137 H Lactic Acid Cancelled Calcium 8.4 L Phosphorus Magnesium Total Bilirubin 0.80 AST 16 ALT 27 Alkaline Phosphatase 106 B-Natriuretic Peptide Total Protein 6.7 Albumin 2.5 L Globulin 4.2 Albumin/Globulin Ratio 0.6 L Procalcitonin MRSA (PCR) 05/28/20 05/28/20 05/28/20 16:00 16:00 16:04 WBC 24.8 H RBC 4.65 Hgb 14.0 Hct 41.3 MCV 88.8 MCH 30.1 MCHC 33.9 RDW Std Deviation 44.0 H RDW Coeff of Naty 13.5 Plt Count 220 MPV 9.9 Immature Gran % (Auto) 1.900 H Neut % (Auto) 93.0 H Lymph % (Auto) 2.4 L [place] % (Auto) 2.3 Eos % (Auto) 0.1 Baso % (Auto) 0.3 Absolute Neuts (auto) 23.1 H Absolute Lymphs (auto) 0.59 L Nucleated RBC % 0 PT INR Specimen Type Cancelled Sample Site Cancelled pH Cancelled Bicarbonate Actual Cancelled Total CO2 Cancelled Base Excess Cancelled O2 Saturation Cancelled O2 % Cancelled ABG pCO2 Cancelled ABG pO2 Cancelled Roni Test Cancelled Respiration Rate Cancelled O2 Delivery Device Cancelled Liter Flow Cancelled Minute Volume Cancelled Vent Mode Cancelled Inspiratory Time Cancelled Expiratory Time Cancelled Tidal Volume Cancelled POC PEEP Cancelled POC Pressure Suppt Cancelled Pressure Control Cancelled Pressure High Cancelled Pressure Low Cancelled Time High Cancelled Time Low Cancelled EPAP Cancelled IPAP Cancelled Blood Gas Comments Cancelled Blood Gas Notified Whom Cancelled Blood Gas Notified Time Cancelled Sodium Potassium Chloride Carbon Dioxide Anion Gap BUN Creatinine Estim Creat Clear Calc Est GFR (MDRD) Af Amer Est GFR (MDRD) Non-Af BUN/Creatinine Ratio Glucose Lactic Acid Calcium Phosphorus 3.6 Magnesium 2.4 Total Bilirubin AST ALT Alkaline Phosphatase B-Natriuretic Peptide Total Protein Albumin Globulin Albumin/Globulin Ratio Procalcitonin MRSA (PCR) 05/28/20 05/28/20 05/28/20 20:05 20:05 21:52 WBC RBC Hgb Hct MCV MCH MCHC RDW Std Deviation RDW Coeff of Naty Plt Count MPV Immature Gran % (Auto) Neut % (Auto) Lymph % (Auto) [place] % (Auto) Eos % (Auto) Baso % (Auto) Absolute Neuts (auto) Absolute Lymphs (auto) Nucleated RBC % PT Cancelled 22.7 H INR Cancelled 2.1 Specimen Type Sample Site pH Bicarbonate Actual Total CO2 Base Excess O2 Saturation O2 % ABG pCO2 ABG pO2 Roni Test Respiration Rate O2 Delivery Device Liter Flow Minute Volume Vent Mode Inspiratory Time Expiratory Time Tidal Volume POC PEEP POC Pressure Suppt Pressure Control Pressure High Pressure Low Time High Time Low EPAP IPAP Blood Gas Comments Blood Gas Notified Whom Blood Gas Notified Time Sodium Potassium Chloride Carbon Dioxide Anion Gap BUN Creatinine Estim Creat Clear Calc Est GFR (MDRD) Af Amer Est GFR (MDRD) Non-Af BUN/Creatinine Ratio Glucose Lactic Acid Cancelled Calcium Phosphorus Magnesium Total Bilirubin AST ALT Alkaline Phosphatase B-Natriuretic Peptide Total Protein Albumin Globulin Albumin/Globulin Ratio Procalcitonin MRSA (PCR) 05/28/20 05/29/20 05/29/20 21:52 03:55 03:55 WBC 16.3 H RBC 4.41 Hgb 13.3 Hct 38.9 MCV 88.2 MCH 30.2 MCHC 34.2 RDW Std Deviation 44.0 H RDW Coeff of Naty 13.5 Plt Count 206 MPV 10.4 Immature Gran % (Auto) 1.800 H Neut % (Auto) 89.9 H Lymph % (Auto) 5.3 L [place] % (Auto) 2.6 Eos % (Auto) 0.2 Baso % (Auto) 0.2 Absolute Neuts (auto) 14.7 H Absolute Lymphs (auto) 0.87 Nucleated RBC % 0 PT INR Specimen Type Sample Site pH Bicarbonate Actual Total CO2 Base Excess O2 Saturation O2 % ABG pCO2 ABG pO2 Roni Test Respiration Rate O2 Delivery Device Liter Flow Minute Volume Vent Mode Inspiratory Time Expiratory Time Tidal Volume POC PEEP POC Pressure Suppt Pressure Control Pressure High Pressure Low Time High Time Low EPAP IPAP Blood Gas Comments Blood Gas Notified Whom Blood Gas Notified Time Sodium 142 Potassium 3.5 Chloride 110 H Carbon Dioxide 22.0 Anion Gap 10 BUN 26 H Creatinine 1.20 H Estim Creat Clear Calc 34.98 Est GFR (MDRD) Af Amer 56 L Est GFR (MDRD) Non-Af 47 L BUN/Creatinine Ratio 21.7 H Glucose 153 H Lactic Acid 2.2 H* Calcium 8.4 L Phosphorus Magnesium Total Bilirubin AST ALT Alkaline Phosphatase B-Natriuretic Peptide Total Protein Albumin Globulin Albumin/Globulin Ratio Procalcitonin MRSA (PCR) 05/29/20 05/29/20 05/29/20 03:55 03:55 08:45 WBC RBC Hgb Hct MCV MCH MCHC RDW Std Deviation RDW Coeff of Naty Plt Count MPV Immature Gran % (Auto) Neut % (Auto) Lymph % (Auto) [place] % (Auto) Eos % (Auto) Baso % (Auto) Absolute Neuts (auto) Absolute Lymphs (auto) Nucleated RBC % PT INR Specimen Type Sample Site pH Bicarbonate Actual Total CO2 Base Excess O2 Saturation O2 % ABG pCO2 ABG pO2 Roni Test Respiration Rate O2 Delivery Device Liter Flow Minute Volume Vent Mode Inspiratory Time Expiratory Time Tidal Volume POC PEEP POC Pressure Suppt Pressure Control Pressure High Pressure Low Time High Time Low EPAP IPAP Blood Gas Comments Blood Gas Notified Whom Blood Gas Notified Time Sodium Potassium Chloride Carbon Dioxide Anion Gap BUN Creatinine Estim Creat Clear Calc Est GFR (MDRD) Af Amer Est GFR (MDRD) Non-Af BUN/Creatinine Ratio Glucose Lactic Acid Calcium Phosphorus Magnesium Total Bilirubin AST ALT Alkaline Phosphatase B-Natriuretic Peptide 494.2 H Total Protein Albumin Globulin Albumin/Globulin Ratio Procalcitonin 0.77 H MRSA (PCR) Negative 05/30/20 05/30/20 04:00 04:00 WBC 12.7 H RBC 4.71 Hgb 14.0 Hct 41.5 MCV 88.1 MCH 29.7 MCHC 33.7 RDW Std Deviation 43.5 RDW Coeff of Naty 13.5 Plt Count 239 MPV 10.8 Immature Gran % (Auto) 1.800 H Neut % (Auto) 87.2 H Lymph % (Auto) 7.5 L [place] % (Auto) 3.2 Eos % (Auto) 0.0 Baso % (Auto) 0.3 Absolute Neuts (auto) 11.0 H Absolute Lymphs (auto) 0.95 Nucleated RBC % 0 PT INR Specimen Type Sample Site pH Bicarbonate Actual Total CO2 Base Excess O2 Saturation O2 % ABG pCO2 ABG pO2 Roni Test Respiration Rate O2 Delivery Device Liter Flow Minute Volume Vent Mode Inspiratory Time Expiratory Time Tidal Volume POC PEEP POC Pressure Suppt Pressure Control Pressure High Pressure Low Time High Time Low EPAP IPAP Blood Gas Comments Blood Gas Notified Whom Blood Gas Notified Time Sodium Pending Potassium Pending Chloride Pending Carbon Dioxide Pending Anion Gap Pending BUN Pending Creatinine Pending Estim Creat Clear Calc Est GFR (MDRD) Af Amer Pending Est GFR (MDRD) Non-Af Pending BUN/Creatinine Ratio Pending Glucose Pending Lactic Acid Calcium Pending Phosphorus Magnesium Total Bilirubin AST ALT Alkaline Phosphatase B-Natriuretic Peptide Total Protein Albumin Globulin Albumin/Globulin Ratio Procalcitonin MRSA (PCR) Clinical Impression(s) from Imaging Studies Chest X-Ray 05/28/20 15:37 IMPRESSION: 1. Multilobar pulmonary infiltrates with features suggesting COVID pneumonia. Electronically Signed: Rancho Capone MD (Brooks) at 16:14 EST , Service support , Medical Necessity - Tobacco Use Smoking Status: Former smoker Tobacco Use: Cigarettes Assessment/Plan All Active Problems Pneumonia due to COVID-19 virus (Acute) Acute hypoxemic respiratory failure (Acute) Atrial flutter with rapid ventricular response (Acute) RECOMMENDATIONS: 1. Continue patient on AVAPS as tolerated, with a goal to maintain saturations at or above 90%. 2. Continue therapeutic anticoagulation with Lovenox. 3. Stop IV diuretic therapy, given interval development of PEDRO. 4. Potassium repletion as ordered. 5. Referral to be placed to hospice care services. IMPRESSIONS: 1. Acute hypoxemic respiratory failure secondary to COVID-19 pneumonia The patient was transferred from [facility] due to progressive respiratory failure in the setting of COVID-19 pneumonia. To date, the patient has received convalescent plasma and has completed treatment courses of both remdesivir and Decadron. Despite this, the patient's oxygenation status has continued to decline. She remains systemically anticoagulated on Lovenox. Although the patient was initially being diuresed, Lasix was discontinued due to the development of PEDRO. The patient was initiated empirically on antimicrobials given fevers noted on presentation to the hospital. Following further goals of care discussion with the patient, she is electing to pursue hospice care services at this time. 2. Acute kidney injury/hypokalemia Likely prerenal in etiology and related to overdiuresis with Lasix. Accordingly, Lasix has been discontinued. Continue to monitor urine output for now. No indication for renal replacement therapy. Potassium repletion has been ordered. 3. Advanced age/hypothyroidism Complicates care, management, recovery and prognosis. Continue home medications. UPDATE: I spoke to Dr. Villaseñor at hospice care and updated him on the patient's overall clinical state. Plan at this time to update her CODE STATUS to DNR comfort care. The patient is going to be removed from BiPAP and placed on a nonrebreather. If she does well, she will then be transferred to inpatient hospice care services. TIME: 33 minutes of critical care time, independent of procedures, was spent addressing the patient's acute hypoxemic respiratory failure, COVID-19 pneumonia, paroxysmal atrial fibrillation/flutter, review of all data, discussions regarding goals of care and collaboration with the care team. [id number] [phone]) [id number] Critical care first hour
[2020-05-30 06:14] LABS: Anion Gap 14 (5-15); BUN 40 mg/dL (7-18); BUN/Creat Ratio 25.3 RATIO (10-20); Chloride 109 mmol/L (98-107); Creatinine, Serum 1.58 mg/dL (0.55-1.02); EST Glomerular Filtration Rate 34 mL/min (>60); Est Glom Filt Rate - Afr Amer 41 mL/min (>60); Estimated Creatinine Clearance 26.57 ml/min; Glucose 142 mg/dL (74-106); Potassium 2.9 mmol/L (3.5-5.1); Sodium Level 145 mmol/L (136-145)
[2020-05-30] MEDS: Potassium Chloride 10mEq/100mL 10 MEQ/100 ML IV.SOLN. 100 MEQ IV BOLUS ×3 (08:26→11:15)
[2020-05-30] MEDS: Enoxaparin 60 MG/0.6 ML Syringe SC (08:33)
[2020-05-30] MEDS: dexAMETHasone 10 MG/ML Vial 6 MG IV (08:33)
--- NOTE | 2020-05-30 08:41 | CASEMGMT ---
Addendum entered by Kiersten Leon 05/30/20 10:45: AMADEO spoke w/RN for ICU, she states our physician spoke w/the physician at hospice, plan will be to take pt off of bipap and then move pt to hospice unit. Pt would like to have her friend Alessandra come see her in the hospital prior to the move to hospice, as pt has no family and needs to get her affairs in order. SW called pt's friend Alycia and let her know that pt is going with hospice, wanted to have Alessandra come in to see her prior to this. Alycia cannot come in as she is in the hospital herself. She gave SW her numbers, , . AMADEO called Alessandra Miranda, she was aware pt was probably was going to go on hospice and is aware pt has COVID, is willing to come see her here in the hospital. She will be here this afternoon. SW let the front services agent know, to let pt in, and let pt's RN know as well. SW will continue to follow and remains available for any additional coordination. SW also did let hospice know of the plan, and that now we are looking more at this afternoon for pt to be transferred. YUE Zafar Addendum entered by Kiersten Leon 05/30/20 09:55: SW called [facility], spoke w/Leo. He is not sure if anyone has looked at the referral. SW requested it be reviewed as soon as able and someone call SW back. YUE Zafar Original Note: AMADEO spoke w/physician, pt has requested referral to hospice, pt may be a candidate for the inpt unit. AMADEO called [facility], faxed over the referral, asked them to call this SW back once they review the referral. AMADEO explained that pt is her own decision maker at this time. SW will continue to follow, will await call back from [facility]. YUE Zafar
--- NOTE | 2020-05-30 13:49 | CASEMGMT ---
It is anticipated hospice will be able to spanish moss picker pt and pt will be moved to the inpt hospice unit this afternoon. YUE Zafar
--- NOTE | 2020-05-30 13:53 | CPS ---
patient was placed on a NRB as a request to nursing, patient status is Hospice
--- NOTE | 2020-05-30 13:57 | NURSING ---
report called to inpatient Hospice unit, change to non-rebreather mask pulse ox 68-90, Friend Riya was here took belongings
--- NOTE | 2020-05-30 14:02 | NURSING ---
hospice updated on status,will send transport
--- NOTE | 2020-05-30 14:06 | PN_ITS ---
Patient Problems: Active and Suspected Problems Pneumonia due to COVID-19 virus (Acute) Acute hypoxemic respiratory failure (Acute) Atrial flutter with rapid ventricular response (Acute) Subjective: Patient was seen and examined today, she remains on BiPAP at this time, she has decided to sign up with hospice, it is anticipated that she may go over to the hospice inpatient care facility today. Patient feels that she made the right decision. - Physical Exam Vitals/I&O's: Vital Signs Temp Pulse Resp BP Pulse Ox 97.9 F 100 26 H 138/78 H 97 05/30/20 12:00 05/30/20 12:00 05/30/20 12:00 05/30/20 12:00 05/30/20 12:00 Oxygen Delivery Method Bi-pap Weight: 60.2 kg Body Mass Index (BMI) 24.7 Intake and Output for Last 24 Hours 05/28/20 05/29/20 05/30/20 23:59 23:59 23:59 Intake Total 101.75 / 116.75 896.33 / 896.33 550 / 550 Output Total 450 / 450 1285 / 1285 195 / 195 Balance -348.25 / -333.25 -388.67 / -388.67 355 / 355 General: Alert, Oriented x3, Cooperative, Well developed HEENT: Atraumatic, PERRLA, EOMI, Normocephalic Oral: Moist Mucosa Neck: Supple, No JVD, Trachea Midline, Thyroid Normal Size and Texture Lungs: Clear to auscultation, No rhonchi, No wheeze, Diminished Cardiovascular: Regular rate, Regular Rhythm, Normal S1, Normal S2, No murmurs, PMI Normal Abdomen: Bowel Sounds Present, Soft, Non Tender, Non-Distended, No hernias noted Extremities: No clubbing, No cyanosis, No edema, Capillary Refill Less than 3 Seconds Skin: No rashes, No breakdown Musculoskeletal: No Tenderness to Palpation of Joints or Extremities Neurological: Cranial nerves II-XII grossly intact, Neuro grossly intact, Sensory exam intact to light touch and pain Psych/Mental Status: Normal Affect, Appropriate, Alert and oriented to time, place, person, mood and affect Microbiology Past 72 Hours 05/29/20 07:10 Urine Catheter - [place] Urine Culture - Preliminary Culture exhibits no growth. Laboratory Results 05/30/20 04:00: WBC 12.7 H, RBC 4.71, Hgb 14.0, Hct 41.5, MCV 88.1, MCH 29.7, MCHC 33.7, RDW Std Deviation 43.5, RDW Coeff of Naty 13.5, Plt Count 239, MPV 10.8, Immature Gran % (Auto) 1.800 H, Neut % (Auto) 87.2 H, Lymph % (Auto) 7.5 L , [place] % (Auto) 3.2, Eos % (Auto) 0.0, Baso % (Auto) 0.3, Absolute Neuts (auto) 11.0 H, Absolute Lymphs (auto) 0.95, Nucleated RBC % 0 05/30/20 04:00: Sodium 145, Potassium 2.9 L, Chloride 109 H, Carbon Dioxide 22.0, Anion Gap 14, BUN 40 H, Creatinine 1.58 H, Estim Creat Clear Calc 26.57, Est GFR (MDRD) Af Amer 41 L, Est GFR (MDRD) Non-Af 34 L, BUN/Creatinine Ratio 25.3 H, Glucose 142 H, Calcium 9.0 Current Medications Lorazepam (Lorazepam 2 Mg/Ml Syringe) 1 - 2 mg IV Q30M PRN PRN Reason: ANXIETY Morphine Sulfate (Morphine 2 Mg/Ml Syringe) 2 - 4 mg IV Q15M PRN PRN Reason: Dyspnea, Air Hunger Morphine Sulfate (Morphine 4 Mg/Ml Syringe) 2 - 4 mg IV Q15M PRN PRN Reason: Dyspnea, Air Hunger Sodium Chloride (0.9% Saline Lock 10 Ml Syringe) 10 - 40 ml IV UD PRN PRN Reason: SALINE FLUSH Last Admin: 05/28/20 17:42 Dose: 10 ml Documented by: Medical Necessity - Tobacco Use Smoking Status: Former smoker Tobacco Use: Cigarettes Assessment/Plan All Active Problems Pneumonia due to COVID-19 virus (Acute) Acute hypoxemic respiratory failure (Acute) Atrial flutter with rapid ventricular response (Acute) #1 acute hypoxic respiratory failure secondary to COVID-19 pneumonia-patient has decided to convert her care to hospice care, it is anticipated she will be transferred to the inpatient hospice care facility today. #2 bilateral COVID-19 pneumonia #3 atrial flutter-converted to sinus rhythm at this time #4 hypothyroidism Patient is DNR CC Inpatient E&M: 53060 Subs Hosp L2
--- NOTE | 2020-05-30 15:03 | NURSING ---
hospice here for transport to inpatient facility, transferred to Hospice per cart with belongings
--- NOTE | 2020-05-31 15:20 | DS.PCM_ITS ---
Discharge Date and Diagnosis - Problem List Patient Problems: Active and Suspected Problems Pneumonia due to COVID-19 virus (Acute) Acute hypoxemic respiratory failure (Acute) Atrial flutter with rapid ventricular response (Acute) Date of Admission: 05/28/20 Date of Discharge: 05/30/20 - Primary Discharge Diagnosis Acute Problems: Active Problems Pneumonia due to COVID-19 virus (Acute) Acute hypoxemic respiratory failure (Acute)-secondary to acute Covid pneumonia Atrial flutter with rapid ventricular response (Acute) Hypothyroidism Hospital Course and Treatment Operations: None Procedures: None Summary of Care Provided: The patient is a 74 year old F was directly admitted to [facility] from an outside hospital where she had been an inpatient for the last 12 days for COVID-19 pneumonia and respiratory failure. Patient been on high flow oxygen and had completed therapy with remdesivir and dexamethasone but has not improved. She requested transfer to hospital that had a pulmonology service. She had an episode of arrhythmia at the hospital and was placed on Eliquis and Cardizem, her Cardizem drip was continued after she was admitted to ICU at [facility], she subsequently converted to normal sinus rhythm. Patient was maintained on BiPAP to appropriately oxygenate her, di scussions were carried out with the patient regarding her CODE STATUS and how aggressive to get with her treatment, she ultimately decided she did not want to be placed on mechanical ventilation and requested hospice consultation. On 05/30/2020, patient was seen and examined: On examination she appeared her stated age, she was on BiPAP, she does not appear to be in any distress. Vital signs as documented. Skin warm and dry and without overt rashes. Neck without JVD, thyroid appears normal, trachea is midline, neck is supple. Lungs clear, normal air movement was noted. Heart exam notable for regular rhythm, normal sounds and absence of murmurs, rubs or gallops. Abdomen unremarkable and without evidence of organomegaly, masses, or abdominal aortic enlargement, bowel sounds are present in all 4 quadrants, no abdominal tenderness was noted. Extremities nonedematous, no cyanosis was noted, no clubbing was noted. Neuro: Cranial nerves II through XII are grossly intact, no focal motor deficits were noted, sensation to light touch and pinprick is intact, motor exam 5/5 throughout. Psych: Patient is alert and oriented x3, she does not appear anxious or depressed, she does not appear agitated.. Patient was transferred to inpatient hospice in [place] on 05/30/2020, at the time of transfer she was on BiPAP but was in stable condition, prognosis was poor however. Patient Problems: Active and Suspected Problems Pneumonia due to COVID-19 virus (Acute) Acute hypoxemic respiratory failure (Acute) Atrial flutter with rapid ventricular response (Acute) - Physical Exam Vitals/I&O's: Vital Signs Temp Pulse Resp BP Pulse Ox 97.9 F 110 H 22 H 150/77 H 82 05/30/20 12:00 05/30/20 14:00 05/30/20 14:00 05/30/20 14:00 05/30/20 14:00 Oxygen Delivery Method Bi-pap Weight: 60.2 kg Body Mass Index (BMI) 24.7 Intake and Output for Last 24 Hours 05/29/20 05/30/20 05/31/20 23:59 23:59 23:59 Intake Total 896.33 / 896.33 550 / 550 Output Total 1285 / 1285 345 / 345 Balance -388.67 / -388.67 205 / 205 Microbiology Past 72 Hours 05/29/20 07:10 Urine Catheter - [place] Urine Culture - Final Culture exhibits no growth. 05/29/20 08:45 Blood Culture (Wb) - Anticubital Right Blood Culture - Preliminary No growth in 48 hours. 05/29/20 07:10 Blood Culture (Wb) - Anticubital Left Blood Culture - Preliminary No growth in 48 hours. Home Medications: Medications to take at Discharge Levothyroxine Sodium [Synthroid] 50 mcg PO DAILY 05/29/20 Primary Care Physician: Corey Montero MD [Primary Care Provider] - Disposition: Hospice Medical Facility Minutes spent on discharge:: 32 Patient Condition:: Stable Medical Necessity - Tobacco Use Smoking Status: Former smoker Tobacco Use: Cigarettes Meaningful Use Info Meaningful Use Diagnoses (Choose all that apply): None applicable Inpatient E&M: 96579 Disch Hosp
== END 2020-05-30 15:05 | disposition hospice, inpatient (51) | DRG 177 ==
PROVIDERS: Hospitalist; Internal Medicine; Internal Medicine Critical Care Medicine; Admitting Provider Internal Medicine; PCP Family Medicine; Visit Provider Internal Medicine
DX: U07.1 COVID-19 (principal); J12.82 Pneumonia due to coronavirus disease 2019; J96.01 Acute respiratory failure with hypoxia; I48.92 Unspecified atrial flutter; N17.9 Acute kidney failure, unspecified; E87.6 Hypokalemia; E03.9 Hypothyroidism, unspecified; Z66 Do not resuscitate; Z79.890 Hormone replacement therapy; Z79.899 Other long term (current) drug therapy; Z87.891 Personal history of nicotine dependence
CPT/HCPCS: 36600; 71045; 80048; 80053; 82803; 83605; 83735; 83880; 84100; 84145; 85025; 85610; 87040; 87086; 87641; 94002; 94003; 97802; A4216; J1940